=== PATIENT | male | born 1950 ===

== ENCOUNTER 2018-04-15 08:04 | Outpatient (CLI) | payer OTHER | END 2018-04-15 08:07 | disposition home or self-care (01) | LOC: SONOGRAMA 08:04 | DX: R59.0 Localized enlarged lymph nodes (principal) ==

== ENCOUNTER 2023-06-19 07:33 | Outpatient (CLI) | payer OTHER | END 2023-06-19 07:37 | disposition home or self-care (01) | LOC: RX STUDY 07:33 | PROVIDERS: ATTEND Otolaryngology Plastic Surgery within the Head & Neck | DX: R13.14 Dysphagia, pharyngoesophageal phase (principal) ==